=== PATIENT | male | born 1990 | race African-American/Black ===

== ENCOUNTER → 2018-09-02 | Outpatient (CLI) | payer BC ==
--- NOTE | 2018-09-03 11:16 | US ---
EXAMINATION TYPE: US gallbladder DATE OF EXAM: 09/02/2018 COMPARISON: NONE CLINICAL HISTORY: R10.10 abd pain. EXAM MEASUREMENTS: Liver Length: 0.3 cm Gallbladder Wall: 0.1 cm CBD: 0.3 cm Right Kidney: 13.6 x 4.9 x 6.0 cm Morbidly obese patient. Technically difficult study. Pancreas: Obscured by bowel gas Liver: unable to penetrate, severe attenuation, enlarged Gallbladder: cholelithiasis, possible sludge Evidence for sonographic Whitehead's sign: no CBD: wnl Right Kidney: very limited visualization due IMPRESSION: 1. Hepatic steatosis versus diffuse hepatocellular disease. 2. Cholelithiasis with sludge.
== END | disposition home or self-care (01) ==
LOC: RADUSWWP 16:50
PROVIDERS: ATTEND Family Medicine
DX: K80.20 Calculus of gallbladder without cholecystitis without obstruction (principal); K82.8 Other specified diseases of gallbladder
CPT/HCPCS: 76705

== ENCOUNTER → 2023-06-25 | Outpatient (CLI) | payer OTHER ==
--- NOTE | 2023-06-30 06:43 | CA ---
Exercise Stress Test Report Name: Navin Ford Exam Date: 06/25/2023 11:02 Exam Location: [place] Stress Ht (in): 68 Wt (lb): 350 BSA: 2.59 Ordering Phys: Umair Horvath MD Referring Phys: Umair Horvath MD Technologist: Jackie Orozco Age: 32 Gender: M : 1990 Procedure CPT: Indications: ICD-10 Codes: Patient History: HTN, CHOL Medications: MOTRIN, BETA-ISAEL( UNSURE OF NAME) Meds past 24 hrs: Pretest Chest Pain: STRESS TEST Kristopher Protocol Exercise Duration (min:sec): 07:[address] Depressions (mm): Angina Score: De [place] O Score: Resting HR (bpm): 74 Peak HR (bpm): 167 Resting BP (mmHg): 149 / 89 Peak BP (mmHg): 212 / 102 MPHR: 190 Target HR: 162 % MPHR: 88 METS: 8.5 Total Dose: Peak Dose: Atropine: Double Product: [id number] BP Response: Stress Termination: Reached target heart rate Stress Symptoms: ASYMPTOMATIC Stress Summary: ECG ANALYSIS Resting ECG: Stress ECG: CONCLUSIONS Good exercise tolerance Normal EKG in response to exercise Dr. Shaji Page MD (Electronically Signed) Final Date: 25 June 2023 12:21
== END | disposition home or self-care (01) ==
LOC: RADNMMAIN 10:31
PROVIDERS: ATTEND Family Medicine
DX: Z01.818 Encounter for other preprocedural examination (principal); I10 Essential (primary) hypertension
CPT/HCPCS: 93017